=== PATIENT | female | born 1945 | race Caucasian/White ===

== ENCOUNTER 2016-12-29 11:37 | Day surgery (SDC) | payer MEDICARE ==
[~2016-12-29] VITALS: Ht 165.1 cm; Wt 107.1 kg
--- NOTE | 2016-12-29 07:59 | PCM.HPANE ---
Patient Data Surgeon Admitting Provider: Attending Provider:Surinder Gutierrez MD Primary Care Physician:Shantel Hoffman MD Other Provider:Vinnie Melchor Anesthesia Reason for Visit Cervical Polyp Ht/WT & BMI Height (Feet): 5 Height (Inches): 5 Weight (Kilograms): 107.047 Body Mass Index 39.00 Allergies Coded Allergies: No Known Allergies (Unverified , 12/28/16) Past Anesthesia History Anesthesia History: Denies:: Anesthesia Reactions, Malignant Hyperthermia Diabetes History Hx Diabetes?: Yes Type of Diabetes: Type II Glycemic Control: Oral Medication MRSA MRSA: No Medications Blood Thinner: Aspirin Reported Medications Ubidecarenone (Coenzyme Q10)100 Mg [id number] Mg PO DAILY 12/28/16 Multivitamin (Multi Vitamin Daily)1 Each Tablet1 Each PO DAILY 30 Days Ref 0 12/28/16 Oxybutynin Chloride ER 10 Mg Tab.er.2410 Mg PO DAILY Ref 0 12/28/16 Metformin (Glucophage)1,000 Mg Tablet1,000 Mg PO BID Ref 0 12/28/16 Aspirin 81 Mg Dhvgxv16 Mg PO DAILY Ref 0 12/28/16 Glipizide 10 Mg Oshpby90 Mg PO DAILY 30 Days 12/28/16 Sertraline HCl (Sertraline)20 Mg/1 Ml Oral.brvg929 Mg PO DAILY #1 BOTTLE Ref 0 12/28/16 Lovastatin 20 Mg Smvoxq81 Mg PO HS #30 TABLET Ref 0 12/28/16 Lorazepam 1 Mg Tablet1 Mg PO TID PRN For Anxiety Ref 0 12/28/16 [Akbar] No Conflict Check4 Units PO DAILY 12/28/16 Discontinued Reported Medications Nitrofurantoin Monohyd/M-Cryst (MacroBid)100 Mg Cqvcrlu635 Mg PO HS Ref 0 X2 DAYS 12/28/16 History History of ENT Problems?: Yes HEENT History: Positive for:: Cataracts (S/P EXTRACTIONS) Hx of Heart Problems?: Yes Cardiovascular History: Denies:: Heart Murmur Hypertension (HYPERLIPIDEMIA) Hx of Respiratory Problem?: No Respiratory History: Denies:: Use of C-PAP Machine Hx Neurologic Problems?: Yes Neurological History: Positive for:: Headaches Hx of GI Problems?: Yes Gastrointestinal History: Positive for:: Gall Bladder Disease (S/P TERESA) Other GI Pertinent History: C/OF DIARRHEA & FECAL INCONTINENCE Hx of Problems?: Yes Female Hx: Denies:: Currently (S/P C/S,D&C) Skin History: Denies:: History Skin Disorders? Pressure Ulcers Hx Musculoskeletal Problems?: Yes Musculoskeletal History: Positive for:: Osteoarthritis (LT HIP PAIN) Hx of Psycho/Social Problems?: Yes Psycho Social History: Positive for:: Anxiety Hx Surgeries?: Yes (C/S,D&C,TERESA,CATARACTS) Hx Any Other Health Problems?: Yes Other History: Positive for:: Hospitalization Denies:: Cancer Endocrine Disease Thyroid Disease History Blood Transfusions: Positive for:: Accept Blood Products? Denies:: Blood Transfusions Hx Diabetes: Yes Hx Alcohol Use: NoHx Substance Use: NoHave You Smoked inLast 12 mo: No Stop/Bang S-Snoring: Do You Snore Loudly: No T-Tired: feel tired, fatigued: Yes O-Obsered: Observed not breath: No P-Blood Pressure: treated: No B- Body Mass Index > 35 kg/m2: Yes A- Age over 50: Yes N- Neck Large Circumference: Yes G- Gender Male: No YUKO Total Score: 4 YUKO Risk Assessment: High Risk, =/>3 Yes YUKO Category 4 OutPt Procedure: Yes Risk Assessment Category Category 1A: Patient has history of documented sleep apnea, and HAS NOT received any narcotic, sedative or anesthesia administration during this stay. Category 1B: Patient has history of documented sleep apnea, and HAS received any narcotic , sedative or anesthesia administration during this stay Category 2: Patient has SUSPECTED Obstructive Sleep Apnea, and HAS received any narcotic , sedative or anesthesia administration during this stay. Category 3: Patient has SUSPECTED Obstructive Sleep Apnea and HAS NOT received narcotic, sedative or anesthesia administration during this stay. Category 4: Outpatient in Procedural Areas with known sleep apnea or who screen positive for High Risk via the STOP/BANG questionnaire. Exam Exam General Appearance: Alert, Oriented X3, Cooperative, No Acute Distress HEENT/AIRWAY: MP 2 Lungs: Normal Air Movement Heart: Exam Unremarkable Plan Impression Patient chart reviewed, patient interviewed and anesthestic plan with risks, benefits, and alternatives discussed, and informed consent obtained. ASA Physical Status: ASA2 Mod Systemic Disease Anesthetic Plan: MAC Bene/Risks/Altern/Consents: Yes HP Complete Prior to Induction: Yes Kannan Beltran MD Dec 29, 2016 07:59
[~2016-12-29 11:37] MED LIST: ASPI-973 PO; CeFAZolin Inj 2 GM in IV Premix 1 EACH IV SCH; GLIP10TA10 PO; LORA1TAB PO; LOVA20TA PO; METF1000 PO; MULT-1018 PO; NITR100 PO; OXYB10TA PO; SERT20OR6 PO; UBID100C PO; [UNRECOGNIZED DRUG - OTHER] PO
[2016-12-29] MEDS ORDERED: Ondansetron 2 mg/mL 2 mL Inj ONE (11:38)
[2016-12-29] MEDS ORDERED: fentaNYL-PF 50 mCg/mL 2 mL Inj ONE (11:38)
[2016-12-29] MEDS ORDERED: Propofol 10,000 mCg/mL 20 mL Inj ONE (11:38)
[2016-12-29] MEDS: Lactated Ringer's 1,000 ML IV SCH ×2 (11:55→14:15)
[2016-12-29 12:06] VITALS: BP 173/85; PULSE 84; RESP 18; O2SAT 95
[2016-12-29] MEDS ORDERED: Lactated Ringer's 1,000 ML IV SCH (14:23)
[2016-12-29] MEDS ORDERED: Lactated Ringer's 500 ML IV PRN (14:23)
[2016-12-29] MEDS ORDERED: fentaNYL-PF 50 mCg/mL 2 mL Inj IVPUSH PRN (14:25)
[2016-12-29] MEDS ORDERED: HYDROmorphone 1 mg/mL Inj IVPUSH PRN (14:25)
[2016-12-29] MEDS ORDERED: Albuterol-Ipratropium 3 mL Inhalation Solution NEB PRN (14:25)
[2016-12-29] MEDS ORDERED: EPHEDrine Sulfate 50 mg/mL Inj IVPUSH PRN (14:25)
[2016-12-29] MEDS ORDERED: Dexamethasone 4 mg/mL Inj IVPUSH PRN (14:25)
[2016-12-29] MEDS ORDERED: MetoCLOpramide 5 mg/mL 2 mL Inj IVPUSH PRN ×2 (14:25→14:45)
[2016-12-29] MEDS ORDERED: Phenylephrine 10,000 mCg/mL Inj IVPUSH PRN (14:25)
[2016-12-29] MEDS ORDERED: Ondansetron 2 mg/mL 2 mL Inj IVPUSH PRN ×2 (14:25→14:45)
[2016-12-29 14:45] VITALS: BP 117/52; PULSE 80; RESP 16; O2SAT 92
--- NOTE | 2016-12-29 14:51 | PCM.DIGYN ---
Surgical Discharge Instruction Dates of Hospitalization Date of Hospital Admission 12/29/16 outpatient surgery Providers Admitting Physician: Primary Care Physician: Shantel Hoffman MD Attending Physician: Surinder Gutierrez MD Diagnosis at Time of Discharge Diagnosis at time of discharge cervical polyp Post-operative diagnosis same Problems: Diet Discharge Diet: Diabetic Activity Discharge Activity-General: No lifting >15 pounds for 2 weeks Dressing and Incisional Care Hygiene: May shower Additional Instructions Discharge Instructions wear a liner or pad until spotting stops Follow Up Plan Follow-up appointment: Weeks (2) Call your provider for: Heavy vaginal bleeding Surinder Gutierrez MD Dec 29, 2016 14:50
--- NOTE | 2016-12-29 15:12 | PCM.SURGOP ---
Surgical Operative Report Date of Service: Dec 29, 2016 Pre Operative Diagnosis cervical polyp Post Operative Diagnosis same Procedure: cervical polypectomy and endocervical curettage Surgeon and Food Processing Chemist: Surgeon: Surinder Gutierrez MD Assistants: None Indication for Procedure Office examination revealed the presence of a 2 cm polyp in the os. Because of the large polyp and risk of bleeding, we consented her for cervical polypectomy and endocervical curettage in the OR setting. She has obtained medical clearance (see letter). The patient signed the consent form. She agreed with the risks, benefits, and alternatives to surgery. The risks included but not limited to recurrence or persistence of polyp, risk of finding of cancer, hemorrhage, need for blood transfusion, hematoma formation, urinary tract infection, cervicitis, endometritis, necrotizing fascitis, and medical risks including myocardial infarction, stroke or VTE. The patient understood the risks and benefits and consented to surgery. Findings: 2 cm polyp from cervix Procedure Details The patient was brought to the operating room and was placed in the supine position with legs in Yellow Ck stirrups. She was given MAC. The vagina was prepped in the usual fashion. She received IV ancef. A speculum was inserted into the vagina. A 2 cm polypoid mass was noted at the cervical os. This was grasped with an ovum forceps and the stalk was incised using Metzembaum scissors. An endocervical curettage was performed. The endocervical canal was cauterized with ball cautery to achieve hemostasis and cauterize any remaining tissue left. The specimens were sent to pathology. She was taken to recovery in stable condition. EBL was minimal. Complications There were no periprocedural complications identified. Surgical Specimen Removed: Yes Specimen sent to Pathology: Yes Surgical Specimen description: cervical polyp endocervical curettage Anesthetic Plan: MAC Grafts, Implants: None Output, Estimated Blood Loss: 5 (ml) Blood Administration during hughes: No Drains: None Catheters: None Post Operative Plan d/c home today copies to: Shantel Hoffman MD; Khalif Farrell MD; Surinder Gutierrez MD, William Andre Z MD Dec 29, 2016 15:12
--- NOTE | 2016-12-29 15:20 | PCM.ANEP2 ---
Post Anesthesia Evaluation ASA/CMS Post Anesthesia VS in Patient's Normal Range?: Yes Resp Stable; Airway Patent?: Yes CV Function & Hydration Stable: Yes Mental Status Recovered?: Yes Pain control Satisfactory?: Yes N/V Control Satisfactory?: Yes Kannan Beltran MD Dec 29, 2016 15:20
--- NOTE | 2016-12-29 15:20 | PCM.ANEP1 ---
Post Anesthesia Phase 1 PACU Phase 1 Assessment Date of Service: Dec 29, 2016 Vital Signs Vital Signs Date Time Temp Pulse Resp B/P Pulse Ox O2 Delivery O2 Flow Rate FiO2 12/29/16 14:45 36.7 80 16 117/52 92 Room Air 12/29/16 12:06 36.5 84 18 173/85 95 Room Air Anesthetic Administered: MAC Level of Alertness: Awake, talking OLEA's with Equal Strength: Yes Pain: No Nausea or Vomiting: No Oxygen Delivery: Room Air Lungs: Normal Air Movement Kannan Beltran MD Dec 29, 2016 15:20
[2016-12-29 16:00] VITALS: BP 122/55; PULSE 77; RESP 14; O2SAT 94
--- NOTE | 2016-12-31 15:36 | PATH ---
SURGICAL PATHOLOGY Attending Physician:Surinder Gutierrez, CASE STATUS: Signed Out PATIENT NAME: GRAZYNA SINGH PID: [id number] : 1945 DATE COLLECTED:12/29/2016 00:00 SPECIMEN: 1: Endocervix, Biopsy 2: Endocervix, Curettage CLINICAL HISTORY: CERVICAL POLYP 1). ENDOCERVICAL POLYP 2). ENDOCERVICAL CURETTAGE FINAL DIAGNOSIS: 1. Endocervical Polyp: Endocervical polyp, negative for dysplasia and malignancy. 2. Endocervical Curettage: Squamous and endocervical tissue fragments, negative for dysplasia and malignancy. ICD10 N84.1 GROSS DESCRIPTION: The specimen is received in two formalin filled containers labeled with the patient's name. 1). The specimen is sublabeled "endocervical polyp" and consists of a pink-machado 2.0 x 0.8 x 0.6 CM portion of tissue and mucoid material. The specimen is sectioned into multiple pieces and entirely submitted in cassette 1A. 2). The specimen is sublabeled "endocervical curettage" and consists of a approximately a 0.25 cc aggregate of mucoid material and blood which is filtered and entirely submitted in cassette 2A. 12/30/2016 [facility] MICRO DESCRIPTION: Please see diagnosis. ICD-9 CODES: CPT CODES: 1: 93798 2: 50539 Electronically Signed Out Christina Beckham MD [facility], [place] [address] Technical component performed at [facility], [address] [place] [address] Ave[address], [place], [address]
== END 2016-12-29 23:59 | disposition home or self-care (01) ==
LOC: SAS 11:37
PROVIDERS: ATTEND Obstetrics & Gynecology
DX: N84.1 Polyp of cervix uteri (principal); R15.9 Full incontinence of feces; N39.46 Mixed incontinence; N81.84 Pelvic muscle wasting; N95.2 Postmenopausal atrophic vaginitis; E11.9 Type 2 diabetes mellitus without complications; F41.9 Anxiety disorder, unspecified; E78.5 Hyperlipidemia, unspecified; M19.90 Unspecified osteoarthritis, unspecified site; Z79.82 Long term (current) use of aspirin; Z79.84 Long term (current) use of oral hypoglycemic drugs; Z87.891 Personal history of nicotine dependence
CPT/HCPCS: 36415; 57505; 86850; 88305; J0690; J1885; J2250; J2405; J3010; J7120